=== PATIENT | male | born 1955 | race Caucasian/White ===

== ENCOUNTER 2024-05-06 07:18 | Emergency (ER) | payer MEDICARE ==
[~2024-05-06] VITALS: Ht 177.8 cm; Wt 74.8 kg
[2024-05-06 07:27] VITALS: PULSE 69; RESP 18; TEMP 97.8; O2SAT 99
[2024-05-06] MEDS ORDERED: IBUPROFEN200 MG PO (07:41)
== END 2024-05-06 08:45 | disposition home or self-care (01) ==
LOC: FSED 07:24
DX: M25.562 Pain in left knee (principal); S83.8X2A Sprain of other specified parts of left knee, initial encounter; W10.8XXA Fall (on) (from) other stairs and steps, initial encounter; Y93.01 Activity, walking, marching and hiking; Y92.89 Other specified places as the place of occurrence of the external cause
CPT/HCPCS: 99283

== ENCOUNTER 2025-04-04 14:28 | Emergency (ER) | payer MEDICARE ==
[~2025-04-04] VITALS: Ht 177.8 cm; Wt 76.7 kg
[~2025-04-04 14:28] MED LIST: IBUPROFEN200 MG PO
[2025-04-04] MEDS: ONDANSETRON HCL INJ 2MG/ML 2ML 2 MG/ML VIAL IV STA (15:13)
[2025-04-04] MEDS: SODIUM CHLORIDE 0.9% 1000ML 1,000 ML IV SCH (15:17)
[2025-04-04] MEDS: TRAMADOL HCL 50 MG TAB PO ONE (16:44)
[2025-04-04] MEDS: PROMETHAZINE HCL (IM) 25 MG/ML VIAL IM ONE (18:05)
[2025-04-04] MEDS ORDERED: ONDANSETRON HCL INJ 2MG/ML 2ML 2 MG/ML VIAL IV PRN (18:45)
[2025-04-04] MEDS ORDERED: Morphine 2mg Syringe 2 MG/ML SYR IV PRN (18:45)
[2025-04-04] MEDS ORDERED: ACETAMIN/BUTALBITAL/CAFFEINE TAB PO PRN (18:45)
[2025-04-04] MEDS ORDERED: SODIUM CHLORIDE 0.9% 1000ML 1,000 ML IV SCH ×2 (18:45)
[2025-04-04] MEDS ORDERED: FIORICET 50-301 EACH PO (18:56)
[2025-04-04 19:04] VITALS: PULSE 64; RESP 16; TEMP 97.5; O2SAT 97
== END 2025-04-04 19:04 | disposition home or self-care (01) ==
LOC: FSED 14:41 → ERHOLD 18:41 → UNDOADMOB 18:41 → FSED 19:04
DX: R51.9 Headache, unspecified (principal); D58.2 Other hemoglobinopathies; R94.4 Abnormal results of kidney function studies; E78.5 Hyperlipidemia, unspecified
CPT/HCPCS: 70450; 80053; 81003; 85025; 96372; 96374; 99284; J2405; J2550; J7030